=== PATIENT | female | born 1980 | race Caucasian/White ===

== ENCOUNTER 2025-10-05 11:54 | Emergency (ER) | payer OTHER, SELFPAY ==
[2025-10-05 12:01] VITALS: BP 164/93; PULSE 99; RESP 18; TEMP 36.5; O2SAT 97; BMI 38.2
--- NOTE | 2025-10-05 12:14 | DI.CT.S_ITS ---
PROCEDURE: CT SOFT TISSUE NECK W CON INDICATIONS: swelling under r jaw r/o sialadenitis or abscess TECHNIQUE: After the administration of intravenous contrast, 3.0 mm axial sections acquired from the sella to the aortic arch. Additional oblique axial 3.0 mm sections acquired through the pharynx. 3 mm thick coronal and sagittal reformats were generated. For radiation dose reduction, the following was used: automated exposure control. COMPARISON: None. FINDINGS: Image quality: Diagnostic Lymph nodes: No enlarged lymph nodes seen throughout the neck. Vessels: Visualized vasculature appears patent. Neck spaces: The oropharynx, nasopharynx, and pharynx demonstrate no mucosal lesions. The vocal cords, false vocal cords, pyriform sinuses, epiglottis, vallecula, and tongue base all appear normal. Extramucosal spaces appear unremarkable. Glands: A punctate, 1 mm, and a 4 mm stone are position within the right distal sublingual gland duct (duct) (). There is a [place] hyperenhancement of the right submandibular and sublingual glands, which is asymmetric to the left. Thyroid gland is normal in appearance.. Miscellaneous: Visualized brain and orbits appear normal. Lung apices appear clear. Superficial soft tissues appear normal. Bones: No suspicious bony lesions. Visualized sinuses and mastoids appear unremarkable. IMPRESSION: Right sublingual sialolithiasis with hyperintense enhancement of the right submandibular and sublingual glands concerning for sialoadenitis. No abscess. Dictated by: Reed Will M.D. on 10/05/2025 at 12:11 Approved by: Reed Will M.D. on 10/05/2025 at 12:16
--- NOTE | 2025-10-05 12:17 | ED.GENADULT ---
HPI - General Adult General Chief complaint: Dental/Oral Stated complaint: swollen lymph node rt side of face Time Seen by Provider: 10/05/25 12:09 Source: patient Mode of arrival: Ambulatory History of Present Illness HPI narrative: This is a 45-year-old female with history of salivary gland stones who presents to the emergency room with 2 days of swelling below the right side of her jaw and no so pain when swallowing. Patient denies sore throat cough odynophagia or any other URI symptoms. Patient denied any fevers or chills abdominal pain nausea or vomiting. Patient states that she usually passes stones but her face/jaw was never gotten swollen. Related Data Previous Rx's ?Medication ?Instructions ?Recorded amoxicillin 875 mg-potassium 1 tab PO BID #20 tabs 10/05/25 clavulanate 125 mg tablet prednisone 20 mg tablet 40 mg (2 x 20 mg) PO DAILY #10 tabs 10/05/25 Allergies Allergy/AdvReac Type Severity Reaction Status Date / Time No Known Allergies Allergy Verified 10/05/25 12:06 Review of Systems Review of Systems Narrative: GENERAL: Denies chills, fatigue, malaise, fever, sweats. HEENT: See HPI RESPIRATORY: Denies dyspnea, cough, wheezing, hemoptysis, sputum. CARDIOVASCULAR: Denies chest pain, palpitations, orthopnea, edema, GASTROINTESTINAL: Denies nausea, vomiting, abdominal pain, diarrhea, constipation, melena. : Denies dysuria, frequency, incontinence, hematuria, urinary retention. MUSCULOSKELETAL: denies weakness, joint pain, or bony pain SKIN: Denies rash, skin lesions, or other NEUROLOGIC: Denies weakness, headache, numbness, change in speech, confusion, seizures, incoordination. PSYCHIATRIC: No concerning psychosocial issues. 12 point review of systems is negative except for those stated above Patient History Social History Smoking Status: Never smoker Smoking Status: Never smoker Exam Narrative Exam Narrative: GENERAL: [] year old patient appears stated age. Well-developed patient, in mild distress. HEAD: Atraumatic. Normocephalic. EYES: Pupils equal round and reactive. Extraocular motions intact. No scleral icterus. No injection or drainage. ENT: There is edema and tenderness to palpation under the body of the right mandible no fluctuance no skin erythema NECK: Trachea midline. Non tender CARDIOVASCULAR: Regular rate and rhythm without murmurs, gallops, or rubs. RESPIRATORY: Clear to auscultation. Breath sounds equal bilaterally. No wheezes, rales, or rhonchi. GASTROINTESTINAL: Abdomen soft, non-tender, nondistended. EXTREMITIES: No edema or joint tenderness. BACK: Nontender without deformity or crepitance. No flank tenderness. NEURO: AOx3. SKIN: No rash or erythema of visible areas Initial Vital Signs Initial Vital Signs: Vital Signs Temperature 97.7 F 10/05/25 12:01 Pulse Rate 99 H 10/05/25 12:01 Respiratory Rate 18 10/05/25 12:01 Blood Pressure 164/93 H 10/05/25 12:01 Pulse Oximetry 97 10/05/25 12:01 Oxygen Delivery Method Room Air 10/05/25 12:01 Course Orders Ordered: ED Orders 10/05/25 12:14 CT soft tissue neck w con Stat 10/05/25 12:15 EKG-12 Lead Stat 10/05/25 12:20 Complete Blood Count AUTO DIFF Stat Comprehensive Metabolic Panel Stat Lactate (Lactic Acid) Stat Procalcitonin Stat 10/05/25 12:48 Blood Culture Stat Discontinued Medications Dexamethasone (Dexamethasone 10 Mg/Ml Vial) 10 mg IV NOW ONE Stop: 10/05/25 14:56 Last Admin: 10/05/25 15:50 Dose: 10 mg Documented By: JUANIS Ampicillin Sodium/Sulbactam (Sodium 3 gm/ Sodium Chloride) 100 mls @ 200 mls/hr IV NOW ONE Stop: 10/05/25 14:56 Last Infusion: 10/05/25 16:29 Dose: Infused Documented By: Admin: 10/05/25 15:50 Dose: 200 mls/hr Documented By: JUANIS Vital Signs Vital signs: Vital Signs - 8 hr 10/05/25 12:01 10/05/25 14:31 10/05/25 16:39 Temperature 97.7 F Pulse Rate 99 H 91 H 89 Respiratory Rate 18 16 16 Blood Pressure 164/93 H 128/92 H 142/86 H Pulse Oximetry 97 99 97 Oxygen Delivery Method Room Air Room Air Room Air Medical Decision Making Lab Data 10/05/25 12:20 10/05/25 12:20 Labs: Lab Results 10/05/25 Range/Units 12:20 WBC 7.7 (4.5-11.0) X10^3/uL RBC 4.85 (4.0-5.2) X10^6/uL Hgb 15.0 (12.0-16.0) g/dL Hct 42.3 (36-46) % MCV 87.2 (80-100) fL MCH 30.9 (26-34) PG MCHC 35.4 (30-36) % RDW 12.9 (11.6-14.8) % Plt Count 209 (150-400) X10^3/uL Neut % (Auto) 71.0 (50-75) % Lymph % (Auto) 20.4 L (25-40) % [place] % (Auto) 6.4 (3-14) % Eos % (Auto) 1.7 L (2-4) % Baso % (Auto) 0.5 (0-2) % Neut # (Auto) 5500 (9972-8642) /uL Lymph # (Auto) 1600 (8823-6735) /uL [place] # (Auto) 500 (0-900) /uL Eos # (Auto) 100 (0-450) /uL Baso # (Auto) 0 (0-100) /uL Sodium 141 (137-145) mmol/L Potassium 3.9 (3.4-5.1) mmol/L Chloride 107 (98-107) mmol/L Carbon Dioxide 26 (22-32) mmol/L BUN 14 (7-17) mg/dL Creatinine 0.94 (0.52-1.04) mg/dL Estimated GFR > 60 (>60) mL/min BUN/Creatinine Ratio 14.9 (6-22) Glucose 108 H (70-99) mg/dL Lactate 1.0 (0.7-2.1) mmol/L Calcium 9.3 (8.4-10.2) mg/dL Total Bilirubin 1.8 H (0.2-1.3) mg/dL AST 30 (14-36) IU/L ALT 44 H (<35) IU/L Alkaline Phosphatase 61 (38-126) U/L Total Protein 7.9 (6.3-8.2) g/dL Albumin 4.5 (3.5-5.0) g/dL Globulin 3.4 (1.7-4.1) g/dL Albumin/Globulin Ratio 1.3 (1.0-2.8) Procalcitonin < 0.030 (<0.5) ng/mL MDM Narrative Additional Information: Patient had a CT of the soft tissue neck which revealed a [place] sublingual sialolithiasis with hyperintense enhancement of the right submandibular and sublingual gland concerning for Cl adenitis no abscess noted patient has patient has CBC within normals chemistry within normal limits lactic acid was normal in the emergency room patient was given IV fluids as well as IV Unasyn and 10 of IV dexamethasone. I did discuss the case with the ENT doctor on-call who agree with the therapy he said it we send the patient on antibiotics his steroid is a be glad to follow up the patient in his office tomorrow differential diagnosis is CLL adenitis sialolithiasis abscess Discharge Plan Departure Patient Disposition: Home Clinical Impression: Acute sialoadenitis Instructions: Parotitis Prescriptions: New amoxicillin-pot clavulanate 875-125 mg tablet 1 tab PO BID Qty: 20 0RF prednisone 20 mg tablet 40 mg PO DAILY Qty: 10 0RF Referrals: Daniel Lomas MD [Physician, Ear, Nose, Throat] - As soon as possible Provider,Jayne HALL [Primary Care Provider, Family Practice] Stand Alone Forms: Patient Portal/API
--- NOTE | 2025-10-05 12:28 | EKG_ITS ---
[address] [address] Test Date: 2025-10-05 Pat Name: Ashley Majano Department: [facility] Room: Gender: Female [employer]: : 1980 Requested By: Order Number: [id number] Reading MD: Bryan Laughlin MD Measurements Intervals [place] Rate: 96 P: 37 [place]: 142 QRS: -19 QRSD: 82 T: 5 QT: 342 QTc: 432 Interpretive Statements Normal sinus rhythm Anterior infarct , age undetermined Electronically Signed On 10-05-2025 15:38:59 PST by Bryan Laughlin MD
[2025-10-05 12:32] LABS: Add Manual Diff / Slide Review NO; Hematocrit 42.3 % (36-46); Hemoglobin 15.0 g/dL (12.0-16.0); Lymphocytes Absolute Auto 1600 /uL (1100-4500); Mean Corpuscular HGB Conc 35.4 % (30-36); Mean Corpuscular Hemoglobin 30.9 PG (26-34); Mean Corpuscular Volume 87.2 fL (80-100); Platelet Count 209 X10^3/uL (150-400)
[2025-10-05 12:44] LABS: Lactate (Lactic Acid) 1.0 mmol/L (0.7-2.1)
[2025-10-05 12:45] LABS: Alanine Aminotransferase 44 IU/L (<35); Albumin 4.5 g/dL (3.5-5.0); Albumin Globulin Ratio 1.3 (1.0-2.8); Alkaline Phosphatase 61 U/L (38-126); Blood Urea Nitrogen 14 mg/dL (7-17); Calcium 9.3 mg/dL (8.4-10.2); Carbon Dioxide 26 mmol/L (22-32); Chloride 107 mmol/L (98-107); Estimated Glomerular Filt Rate > 60 mL/min (>60); Globulin 3.4 g/dL (1.7-4.1); Glucose 108 mg/dL (70-99); HEMOLYSIS < 15 (0-50); Potassium 3.9 mmol/L (3.4-5.1); Sodium 141 mmol/L (137-145); Total Protein 7.9 g/dL (6.3-8.2)
[2025-10-05 13:02] LABS: Procalcitonin < 0.030 ng/mL (<0.5)
[2025-10-05 14:31] VITALS: BP 128/92; PULSE 91; RESP 16; O2SAT 99
[2025-10-05] MEDS: AMPICILLIN/SULBACTAM 3 GM 3 GM in SODIUM CHLORIDE 0.9% 100 ML IV (15:50)
[2025-10-05 16:39] VITALS: BP 142/86; PULSE 89; RESP 16; O2SAT 97
== END 2025-10-05 17:45 | disposition home or self-care (01) ==
PROVIDERS: Emergency Provider Emergency Medicine
DX: K11.21 Acute sialoadenitis (principal)
CPT/HCPCS: 36415; 70491; 80053; 83605; 84145; 85025; 87040; 93005; 93010; 96365; 99284; J0295; J1100; J7050